=== PATIENT | female | born 1950 | race Caucasian/White ===

== ENCOUNTER → 2016-11-16 | Outpatient (CLI) | payer MEDICARE ==
--- NOTE | 2016-11-16 09:00 | BD ---
EXAMINATION TYPE: MG DEXA axial skeleton. DATE OF EXAM: 11/16/2016 COMPARISON: 2014 CLINICAL HISTORY: other spec disorder Height: 5'3 Weight: 187 FRAX RISK QUESTIONS: Alcohol (3 or more units per day): no Family History (Parent hip fracture): no Glucocorticoids (More than 3mos): no (Ex: prednisone, prednisolone, methylprednisolone, dexamethasone, and hydrocortisone). History of Fracture in Adulthood: no Secondary Osteoporosis: 1. Type 1 Diabetes: no 2. Hyperthyroidism: no 3. Menopause before 45: no 4. Malnutrition: no 5. Chronic liver disease: no Rheumatoid Arthritis: no Current Tobacco Use: no RISK FACTORS HISTORY OF: Family History of Osteoporosis: Postmenopausal woman: MEDICATIONS: Thyroid Medications: Which medication: Synthroid How Lon years Additional Medications: cholesterol Additional History: EXAM MEASUREMENTS: Bone mineral densitometry was performed using the [employer] System. Bone mineral density as measured about the Lumbar spine is: ----- L1-L4(G/cm2): 1.276 T Score Values are as follows: ----- L2: 0.5 ----- L3: 1.3 ----- L4: 2.0 ----- L1-L4: 0.8 Bone mineral density has: Increased 3.0% since study of: 10/17/2014 Bone mineral density about the R hip (g/cm2): 0.906 Bone mineral density about the L hip (g/cm2): 0.857 T Score values are as follows: -----R Neck: -0.9 -----L Neck: -1.3 -----R Total: -0.1 -----L Total: -0.4 Bone mineral density has: Increased 1.1% since study of: 10/17/2014 IMPRESSION: Osteopenia (T Score between -2.5 and -1 as noted by T score values: Left hip There is slightly increased risk of fracture and the patient may be considered for treatment. Re-Screen 2-5 years. NOTE: T-SCORE=SD OF THE YOUNG ADULT MEAN.
--- NOTE | 2016-11-18 07:53 | MM ---
Reason for exam: screening (asymptomatic). Last mammogram was performed 1 year ago. History: Patient is postmenopausal. Excisional biopsy of the left breast. 2 benign excisional biopsies of the right breast. Physical Findings: A clinical breast exam by your physician is recommended on an annual basis and results should be correlated with mammographic findings. MG 3D Screening Mammo W/Cad Bilateral CC and MLO view(s) were taken. Prior study comparison: November 11, 2015, bilateral MG 3d screening mammo w/cad. October 17, 2014, bilateral MG screening mammo w CAD. October 16, 2013, bilateral MG screening mammo w CAD. There are scattered fibroglandular densities. Finding: There is a 13 mm circumscribed round mass in the subareolar position of the left breast. There is a chronic nodularity bilaterally. New finding and increase in size since November 11, 2015, October 17, 2014, and October 16, 2013. ASSESSMENT: Incomplete: need additional imaging evaluation, BI-RAD 0 RECOMMENDATION: Ultrasound of the left breast. [facility] will attempt to contact patient to return for ultrasound.
== END | disposition home or self-care (01) ==
LOC: RADBDWWP 07:50
PROVIDERS: ATTEND Internal Medicine
DX: Z12.31 Encounter for screening mammogram for malignant neoplasm of breast (principal); M85.88 Other specified disorders of bone density and structure, other site
CPT/HCPCS: 77080; 77063; G0202

== ENCOUNTER → 2016-11-19 | Outpatient (CLI) | payer MEDICARE ==
--- NOTE | 2016-11-20 07:53 | USB ---
Reason for exam: additional evaluation requested from abnormal screening. History: Patient is postmenopausal. Excisional biopsy of the left breast. 2 benign excisional biopsies of the right breast. Physical Findings: Nurse Summary: Patient complains of left breast x 1 year, 1cm superficial retroareolar 3 o'clock sebaceous cyst (nurse mj). US Breast Workup Limited LT Left breast ultrasound demonstrates a 1.3 x 1.4 x 0.8cm oval, hypoechoic lesion at 3:30 subareolar position with thru transmission. The lesion involves the skin surface suggesting a sebaceous cyst. No other solid or cystic lesion seen. These results were verbally communicated with the patient and result sheet given to the patient on 11/19/16. ASSESSMENT: Benign, BI-RAD 2 RECOMMENDATION: Return to routine screening mammogram schedule for both breasts. Manage on a clinical basis with regard to probable sebaceous cyst.
== END | disposition home or self-care (01) ==
LOC: RADUSWWP 14:11
PROVIDERS: ATTEND Internal Medicine
DX: R92.8 Other abnormal and inconclusive findings on diagnostic imaging of breast (principal)

== ENCOUNTER → 2017-11-17 | Outpatient (CLI) | payer MEDICARE ==
--- NOTE | 2017-11-19 12:39 | MM ---
Reason for exam: screening (asymptomatic). Last mammogram was performed 1 year ago. History: Patient is postmenopausal. Excisional biopsy of the left breast. 2 benign excisional biopsies of the right breast. Physical Findings: A clinical breast exam by your physician is recommended on an annual basis and results should be correlated with mammographic findings. MG 3D Screening Mammo W/Cad Bilateral CC and MLO view(s) were taken. Prior study comparison: November 16, 2016, bilateral MG 3d screening mammo w/cad. November 11, 2015, bilateral MG 3d screening mammo w/cad. There are scattered fibroglandular densities. There is chronic nodularity in the left breast. Ring or palpable abnormality corresponds to chronic nodularity left breast enlarged from 2012. This finding is changed when compared with previous exams. ASSESSMENT: Incomplete: need additional imaging evaluation, BI-RAD 0 RECOMMENDATION: Ultrasound of the left breast. [facility] will attempt to contact patient to return for ultrasound.
== END | disposition home or self-care (01) ==
LOC: RADMAMWWP 09:42
PROVIDERS: ATTEND Internal Medicine
DX: Z12.31 Encounter for screening mammogram for malignant neoplasm of breast (principal)
CPT/HCPCS: 77063; 77067

== ENCOUNTER → 2017-11-26 | Outpatient (CLI) | payer MEDICARE ==
--- NOTE | 2017-11-29 08:53 | USB ---
Reason for exam: additional evaluation requested from abnormal screening. History: Patient is postmenopausal. Excisional biopsy of the left breast. 2 benign excisional biopsies of the right breast. Physical Findings: Nurse did not find any significant physical abnormalities on exam. US Breast Workup Limited LT Left limited breast ultrasound including focal area of concern, retroareolar and axilla demonstrates a 1.6 x 0.9 x 1.3cm hypoechoic lesion at the 3 o'clock posterior nipple. These results were verbally communicated with the patient and result sheet given to the patient on 11/26/17. ASSESSMENT: Suspicious, BI-RAD 4 RECOMMENDATION: Aspiration of the left breast. Patient wishes to talk to Dr. Hewitt at appointment scheduled for 11/29/17.
== END | disposition home or self-care (01) ==
LOC: RADUSWWP 14:06
PROVIDERS: ATTEND Internal Medicine
DX: R92.8 Other abnormal and inconclusive findings on diagnostic imaging of breast (principal)

== ENCOUNTER 2017-12-24 10:06 | Day surgery (SDC) | payer MEDICARE ==
[2017-12-22 11:34] VITALS: BMI 32.2
[~2017-12-24 10:06] MED LIST: LACTATED RINGERS 1,000 ML IV SCH
[2017-12-24 10:49] VITALS: RESP 16; TEMP 97.8
[2017-12-24] MEDS ORDERED: LIDOCAINE 1% 20 ML VIAL (10MG/ML) FOR IV START INTRADERMA ONE (10:54)
[2017-12-24] MEDS ORDERED: PROPOFOL 10 MG/ML 20 ML VIAL IV ONE (11:20)
--- NOTE | 2017-12-24 11:38 | P.GSHP ---
History of Present Illness H&P Date: 12/24/17 Chief Complaint: Colon cancer screening Patient here today for colonoscopy. Last colonoscopy 5 years ago. The patient had a small adenoma in the cecum at that time. Otherwise no bowel complaints. Past Medical History Past Medical History: Hyperlipidemia, Osteoarthritis (OA), Thyroid Disorder Additional Past Medical History / Comment(s): Hx MIGRAINES, none in 15 yrs, hypothyroid. History of Any Multi-Drug Resistant Organisms: None Reported Past Surgical History: Section, Cholecystectomy Additional Past Surgical History / Comment(s): "Stones removed from salivary gland" Past Anesthesia/Blood Transfusion Reactions: No Reported Reaction Past Psychological History: No Psychological Hx Reported Smoking Status: Former smoker Past Alcohol Use History: Occasional Additional Past Alcohol Use History / Comment(s): Quit smoking 13 yrs ago, smoked for 35yrs. Past Drug Use History: None Reported - Past Family History Father Family Medical History: Cancer Medications and Allergies Home Medications Medication Instructions Recorded Confirmed Type Levothyroxine Sodium [Synthroid] 75 mcg PO QAM 08/15/13 12/24/17 History Pravastatin Sodium [Pravachol] 40 mg PO HS 08/15/13 12/24/17 History Aspirin 81 mg PO DAILY 09/17/14 12/22/17 History Calcium Carbonate/Vitamin D3 1 tab PO DAILY 12/22/17 12/24/17 History [Calcium 600-Vit D3 500 Softgel] Cholecalciferol [Vitamin D3] 5,000 unit PO DAILY 12/22/17 12/24/17 History Joint Health 1 tab PO DAILY 12/22/17 12/24/17 History Allergies Allergy/AdvReac Type Severity Reaction Status Date / Time No Known Allergies Allergy Verified 12/22/17 11:22 Surgical - Exam Vital Signs Temp Pulse Resp BP Pulse Ox 97.8 F 65 16 160/83 96 12/24/17 10:46 12/24/17 10:46 12/24/17 10:46 12/24/17 10:46 12/24/17 10:46 My physical exam Assessment and Plan (1) Colon cancer screening Narrative/Plan: Will proceed with colonoscopy Current Visit: Yes Status: Acute Code(s): Z12.11 - ENCOUNTER FOR SCREENING FOR MALIGNANT NEOPLASM OF COLON SNOMED Code(s): 164389237
[2017-12-24 12:11] VITALS: BP 127/67; PULSE 71
--- NOTE | 2017-12-24 12:54 | P.PCN ---
Date of Procedure: 12/24/17 Procedure(s) Performed: PREOPERATIVE DIAGNOSIS: Colon cancer screening, history of polyps POSTOPERATIVE DIAGNOSIS: Diverticulosis PROCEDURE: Colonoscopy ANESTHESIA: MAC SURGEON: Anam Hewitt M.D. SPECIMENS: None ENDOSCOPIC PROCEDURE: The patient was placed on the endoscopy table in the left decubitus position. The Olympus colonoscope was inserted into the anus and passed under direct visualization to the proximal ascending colon. It appeared that we were just adjacent to the ileocecal valve. I could not however loop around into the base of the cecum. This was despite multiple attempts at changing the patient's body position and abdominal wall pressures. The scope was slowly withdrawn. There were no neoplastic inflammatory or polypoid lesions throughout the visualized cecum, ascending, transverse, descending, sigmoid and rectum. There was moderate left-sided diverticulosis noted. Digital rectal examination was normal. The patient was taken to the recovery room in stable condition per anesthesia guidelines. RECOMMENDATIONS: Exam findings discussed with the patient and her in detail. We could not visualize the base of the cecum where she had a previous polyp. We did discuss the options of barium enema however given the relatively low likelihood that an abnormality would be identified we decided to continue observation. We'll plan follow-up colonoscopy 5 years.
== END 2017-12-24 12:30 | disposition home or self-care (01) ==
LOC: ORWHC2ENDO 10:06
PROVIDERS: ATTEND Surgery
DX: Z12.11 Encounter for screening for malignant neoplasm of colon (principal); K57.30 Diverticulosis of large intestine without perforation or abscess without bleeding; Z86.010 Personal history of colon polyps; E78.5 Hyperlipidemia, unspecified; M19.90 Unspecified osteoarthritis, unspecified site; E03.9 Hypothyroidism, unspecified; Z87.891 Personal history of nicotine dependence; Z79.82 Long term (current) use of aspirin; Z79.890 Hormone replacement therapy; Z79.899 Other long term (current) drug therapy
CPT/HCPCS: J2704; G0105

== ENCOUNTER → 2018-11-24 | Outpatient (CLI) | payer MEDICARE ==
--- NOTE | 2018-11-25 08:31 | MM ---
Reason for exam: additional evaluation requested from prior study. Last mammogram was performed 1 year ago. History: Patient is postmenopausal. Excisional biopsy of the left breast. 2 benign excisional biopsies of the right breast. Physical Findings: Nurse did not find any significant physical abnormalities on exam. MG 3D Diag Mammo W/Cad SHO Bilateral CC and MLO view(s) were taken. Prior study comparison: November 17, 2017, bilateral MG 3d screening mammo w/cad. November 16, 2016, bilateral MG 3d screening mammo w/cad. There are scattered fibroglandular densities. There is chronic nodularity in the right breast. Chronic grouped calcifications 10 o'clock left breast. Stable bilobed appearance to the left nipple. These results were verbally communicated with the patient and result sheet given to the patient on 11/24/18. ASSESSMENT: Benign, BI-RAD 2 RECOMMENDATION: Routine screening mammogram of both breasts in 1 year.
--- NOTE | 2018-11-25 13:53 | BD ---
EXAMINATION TYPE: Axial Bone Density DATE OF EXAM: 11/24/2018 COMPARISON: 11.16.2016 CLINICAL HISTORY: M 89.9 Height: 63 Weight: 192.5 FRAX RISK QUESTIONS: Alcohol (3 or more units per day): no Family History (Parent hip fracture): no Glucocorticoids (More than 3mos): no (Ex: prednisone, prednisolone, methylprednisolone, dexamethasone, and hydrocortisone). History of Fracture in Adulthood: no Secondary Osteoporosis: no 1. Type 1 Diabetes: no 2. Hyperthyroidism: no 3. Menopause before 45: no 4. Malnutrition: no 5. Chronic liver disease: no Rheumatoid Arthritis: no Current Tobacco Use: no RISK FACTORS HISTORY OF: family hx osteoporosis menopause age 50 MEDICATIONS: cholesterol Thyroid Medications: synthroid Additional History: EXAM MEASUREMENTS: Bone mineral densitometry was performed using the [employer] System. Bone mineral density as measured about the Lumbar spine is: ----- L1-L4(G/cm2): 1.309 T Score Values are as follows: ----- L2: 0.7 ----- L3: 1.9 ----- L4: 2.0 ----- L1-L4: 1.1 Bone mineral density has: increased 2.5 % since study of: 11.16.2016 Bone mineral density about the R hip (g/cm2): 0.923 Bone mineral density about the L hip (g/cm2): 0.952 T Score values are as follows: -----R Neck: -0.8 -----L Neck: -0.6 -----R Total: -0.1 -----L Total: -0.4 Bone mineral density has: decreased -0.2 % since study of: 11.16.2016 IMPRESSION: Osteopenia (T Score between -2.5 and -1). There is slightly increased risk of fracture and the patient may be considered for treatment. Re-Screen 2-5 years. NOTE: T-SCORE=SD OF THE YOUNG ADULT MEAN.
== END | disposition home or self-care (01) ==
LOC: RADMAMWWP 15:03
PROVIDERS: ATTEND Family Medicine
DX: R92.8 Other abnormal and inconclusive findings on diagnostic imaging of breast (principal); M85.80 Other specified disorders of bone density and structure, unspecified site
CPT/HCPCS: 77080; 77066; G0279; 77062

== ENCOUNTER → 2019-12-11 | Outpatient (CLI) | payer MEDICARE | END | disposition home or self-care (01) | LOC: LABPAT 12:31 | PROVIDERS: ATTEND Orthopaedic Surgery | DX: Z01.812 Encounter for preprocedural laboratory examination (principal) | CPT/HCPCS: 87070 ==

== ENCOUNTER 2020-01-02 07:41 | Day surgery (SDC) | payer MEDICARE ==
[2019-12-29 15:23] VITALS: BMI 34.7
--- NOTE | 2020-01-01 11:00 | HP ---
HISTORY AND PHYSICAL CHIEF COMPLAINT: Left knee pain. HISTORY OF PRESENT ILLNESS: Patient is a 69-year-old female who presents with progressive left knee pain for the past several years. It has worsened over the past 2-3 months. She notes anterior and medial pain with weightbearing activities and walking along with stairs. She had a previous arthroscopy 25 years ago. She notes she has been limping. She has had a hard time getting around. She has tried conservative treatment over the past 2 years to include weight loss and home exercise program in addition to anti-inflammatories. PAST MEDICAL HISTORY: Significant for arthritis, hypercholesterolemia, and hypothyroidism. PAST SURGICAL HISTORY: Significant for previous left knee arthroscopy in addition to cholecystectomy and section. CURRENT MEDICATIONS: Aspirin, pravastatin and her thyroid medication. She denies drug allergies. FAMILY HISTORY: Significant for cancer. SOCIAL HISTORY: Negative for current tobacco or alcohol use. 16 POINT REVIEW OF SYSTEMS: Otherwise reviewed and is noncontributory. PHYSICAL EXAMINATION: On examination, the patient is approximately 5 foot 3, 190 pounds of endomorphic habitus. HEENT: Exam is nonfocal. NECK: Supple. She has painless passive motion of her left hip. Straight leg raise is negative. Active motion left knee -18 to 50 degrees of flexion. She has a moderate effusion. She is tender about the medial joint line. Collaterals are stable, Karen is negative, Yandel's is equivocal. Her distal neurovascular appears intact in the left lower extremity. Weightbearing notch, lateral Merchant views of the left knee obtained in the office show severe medial and patellofemoral compartment narrowing with [id number] changes and subchondral sclerosis and spur formation. IMPRESSION: Left knee severe medial and patellofemoral compartment osteoarthrosis. RECOMMENDATIONS: I talked to the patient at length regarding her condition and treatment options. At this point, she is quite limited because of pain related to her osteoarthrosis despite previous conservative measures. After thorough discussion, she opts to proceed with surgery. We will plan to proceed with left total knee arthroplasty. Risks and benefits were discussed at length in layman's terms. We will institute DVT prophylaxis postoperatively. The patient underwent preoperative medical evaluation by Jess Avery, Nurse practitioner. MMODL / JAQUELINEN: [id number] /
[~2020-01-02 07:41] MED LIST changes: +HYDROmorphone 0.5 MG/0.5 ML SYRINGE IVP PRN; -LACTATED RINGERS 1,000 ML IV SCH; +LIDOCAINE 1% (10MG/ML) FOR IV START INTRADERMA PRN; +MIDAZOLAM 2 MG/2 ML VIAL IV PRN; +ROPIVACAINE 246.25 MG, EPINEPHrine 0.5 MG, KETOROLAC 30 MG, cloNIDine HCL/PF 80 MCG, WA... MISCELLANE ONE; +TRANEXAMIC ACID 1,000 MG in SODIUM CHLORIDE 0.9% 100 ML IVPB ONE
[2020-01-02] MEDS: LACTATED RINGERS 1,000 ML IV SCH (08:15)
[2020-01-02] MEDS ORDERED: LIDOCAINE 1% (10MG/ML) FOR IV START INTRADERMA ONE (08:15)
[2020-01-02] MEDS: ACETAMINOPHEN TAB 500 MG TAB PO ONE ×2 (08:30→13:45)
[2020-01-02] MEDS: MELOXICAM 7.5 MG TAB PO ONE ×2 (08:30→13:45)
[2020-01-02] MEDS: ONDANSETRON 4 MG/2 ML VIAL IVP ONE ×2 (08:40→13:48)
[2020-01-02] MEDS: DEXAMETHASONE SOD PHOSPHATE 4 MG/ML 1 ML VIAL IV ONE ×2 (08:40→13:45)
[2020-01-02] MEDS ORDERED: fentaNYL (PF) 50 MCG/ML 2 ML AMP IVP ONE (08:45)
[2020-01-02] MEDS ORDERED: ROPIVACAINE 0.2%-NS ON-Q PUMP 1,090 MG, EMPTY PAIN BALL 1 EACH MISCELLANE PRN (09:02)
--- NOTE | 2020-01-02 09:03 | P.ANPRN ---
Procedure Note - Anesthesia - Nerve Block Performed Left Adductor Canal Infusion Time Out Performed: Yes (842) Date of Procedure: 01/02/20 Procedure Start Time: 08:43 Procedure Stop Time: 08:53 Location of Patient: PreOp Indication: Acute Post-Operative Pain, Analgesia, Requested by Surgeon Specifically requested for management of pain by : Nathan Enriquez Sedation Type: Sedate with meaningful contact maintained Preparation: Sterile Prep, Sterile Dressing Position: Supine Catheter: Indwelling Needle Types: Pajunk Needle Gauge: 18 Ultrasound used to visualize needle placement: Yes Ultrasound used to observe medication spread: Yes Injectate: 0.5% Ropivacaine (see comment for volume) (20 mL) Blood Aspirated: No Pain Paresthesia on Injection Noted: No Resistance on Injection: Normal Image Stored and Saved: Yes Events: Uneventful and Well Tolerated
[2020-01-02] MEDS ORDERED: fentaNYL (PF) 50 MCG/ML 2 ML AMP ONE (09:24)
[2020-01-02] MEDS ORDERED: SODIUM CHLORIDE 0.9% 100 ML BAG ONE (09:24)
[2020-01-02] MEDS ORDERED: PROPOFOL 10 MG/ML 20 ML VIAL IV ONE (09:24)
[2020-01-02] MEDS ORDERED: TRANEXAMIC ACID 1,000 MG/10 ML VIAL ONE (09:24)
[2020-01-02] MEDS ORDERED: MIDAZOLAM 2 MG/2 ML VIAL ONE (09:24)
[2020-01-02 09:25] LABS: INR 0.9 (<1.2); Prothrombin Time 9.6 sec (9.0-12.0)
[2020-01-02] MEDS ORDERED: ceFAZolin 3,000 MG in SODIUM CHLORIDE 0.9% IRRIGATIO 3,000 ML IRRIGATION ONE (10:02)
[2020-01-02] MEDS ORDERED: traMADol 50 MG TAB PO PRN (11:07)
[2020-01-02] MEDS ORDERED: ACETAMINOPHEN TAB 325 MG TAB PO PRN (11:07)
[2020-01-02] MEDS ORDERED: HYDROmorphone 0.5 MG/0.5 ML SYRINGE IVP PRN (11:07)
[2020-01-02] MEDS ORDERED: ONDANSETRON 4 MG/2 ML VIAL IVP PRN (11:07)
[2020-01-02] MEDS ORDERED: HYDROcodone/APAP 5-325MG 1 EACH TAB PO PRN (11:07)
[2020-01-02] MEDS ORDERED: MAGNESIUM HYDROXIDE 2,400 MG/10 ML CUP PO PRN (11:07)
[2020-01-02] MEDS ORDERED: NALOXONE 0.4 MG/ML 1 ML VIAL IV PRN (11:07)
[2020-01-02] MEDS ORDERED: LACTATED RINGERS 1,000 ML IV ONE (11:10)
--- NOTE | 2020-01-02 11:39 | P.OP ---
Date of Procedure: 01/02/20 Preoperative Diagnosis: Left knee severe tricompartmental osteoarthrosis Postoperative Diagnosis: Same Procedure(s) Performed: Left total knee arthroplastycruciate retainingcemented Implants: Depuy Attune 6 cemented femoral component, size 5 cemented tibial component, 10 mm articular surface, 32 mm cemented patellar component. Anesthesia: regional, local, spinal Surgeon: Nathan Enriquez Hammer Adjuster #1: Benedicto Cummins Estimated Blood Loss (ml): 50 Pathology: other (Bone fragments) Condition: stable Disposition: PACU Indications for Procedure: The patient's a 69-year-old female who presents with progressive left knee pain secondary to osteoarthrosis despite conservative measures. A discussion of the risks and benefits of operative intervention versus continued conservative measures was made with patient. She opted to proceed with surgery. Operative risks to include infection, neurovascular injury, possible development of blood clots, possible fracture, possible component loosening, possible component failure and need for subsequent procedures was discussed. Informed consent was obtained. Operative Findings: Same Description of Procedure: The patient was brought to the operating room, and after induction of spinal anesthesia the left lower extremity was prepped and draped in a normal fashion. The tourniquet was inflated to 270 mmHg. A longitudinal incision extending 3 finger breaths above the superior pole of the patella extending to the medial aspect the tibial tubercle was then made. The skin and subcutaneous tissues were divided sharply. Electrocautery was used for hemostasis. A medial parapatellar arthrotomy was then performed. The medial soft tissues to include the superficial and deep portions of the medial collateral ligament as well as the medial hamstring tendons were elevated subperiosteally. The proximal medial tibia osteophytes were carefully removed. The patella was everted. The knee was flexed. A portion of the retropatellar fat pad was excised sharply. The anterior cruciate ligament was sacrificed. A starting hole was made in the distal femur 1 cm anterior to the posterior cruciate origin. An intramedullary femoral guide was gently inserted planning on 5 valgus distal cut with 9 mm distal resection. The cutting block was pinned in place. The distal cut was then made. The posterior referencing sizing guide was utilized. 3 of external rotation was built into the system and verified off the trans- epicondylar axis and the posterior condyles. I felt size 6 narrow was most appropriate. The cutting block was pinned in place. The anterior, posterior, and chamfer cuts were then made. The bone fragments were removed. A sulcus cut was then made with the appropriate guide. The trial size 6 narrow femoral component was then placed and was fully seated. There was good anterior to posterior and medial to lateral fit. The distal peg holes were then drilled. The trial component was then removed. Attention was then paid towards preparing the proximal tibia. An extra medullary guide was utilized in line with the tibial shaft and second metatarsal distally. A 7 posterior slope was planned. I planned on 2 mm resection from the medial compartment. The cutting block was pinned in place. The proximal tibial cut was then made. The bone was removed in one fragment. The remnants of the medial and lateral menisci were excised the capsule junction with electrocautery. The tibia sized most appropriately at size 5. The posterior osteophytes off the distal femur were carefully removed with a curved osteotome. The trial tibial and femoral components were placed along with a 10 millimeters articular surface. I was able to obtain full flexion and extension with good stability with varus and valgus stress. After several flexion and extension cycles, the tibial rotation was marked with electrocautery in line with the medial one third of the tibial tubercle. Attention was then paid towards preparing the patella. A patella reamer was utilized taking this down to 14 mm of bone stock. A good flush cut was made. The patella sized most appropriately at 32 millimeters. The peg holes were then drilled. The trial component was placed. The knee was taken through a range of motion. I had good patellofemoral tracking with no hands technique. The trial components were then removed. The tibia was prepared in the appropriate rotation with appropriate drill and keel punch. The flexion and extension gaps were checked and felt to be symmetric. The posterior soft tissues were injected with ropivacaine. The bony surfaces were prepared with pulsatile lavage and dried. The deep tibial component was then cemented in place and was fully seated. Excess cement was removed. The femoral component was cemented in place and was fully seated. Again excess cement was removed. The trial 10 millimeters surface was then inserted in the knee was put in full extension. T he patella component was cemented in place. After the cement had sufficiently hardened, the knee was again taken through a range of motion. Again there was good stability in flexion and extension with varus and valgus stress. The trial articular surface was then removed. The final articular surface was placed and was impacted. Care was taken to avoid any soft tissue interposition. Pulsatile lavage was again utilized. The tourniquet was deflated with approximately 60 minutes total tourniquet time. There was minimal drainage therefore a deep drain was not placed. The medial parapatellar arthrotomy was then closed with #2 Ethibond suture. The subcutaneous tissues were reapproximated interrupted 2- 0 Vicryl sutures. The skin was reapproximated with 3-0 subarticular strata fix suture. Skin tape and adhesive was applied. A sterile dressing was applied. The patient was then awoken from sedation and transferred to recovery room in good condition. Blood loss was estimated at 50 milliliters. No complications were incurred. Sponge and needle counts were correct at the end the case. Te MOMIN assisted during the major components this case to include exposure, bone resection, and implantation.
--- NOTE | 2020-01-02 12:45 | XR ---
EXAMINATION TYPE: XR knee limited LT DATE OF EXAM: 01/02/2020 COMPARISON: NONE HISTORY: 69-year-old female evaluation for postoperative abnormality in alignment TECHNIQUE: 2 views FINDINGS: Images show placement of left total knee arthroplasty. Both distal femoral and proximal tibial compon ents of the prosthesis are well seated without periprosthetic fracture. Alignment grossly anatomic. A nterior soft tissue swelling with soft tissue air as well as intra-articular air compatible with rece nt operation. IMPRESSION: Uncomplicated postoperative appearance left total knee arthroplasty.
[2020-01-02] MEDS ORDERED: PRAVASTATIN SODIUM 40 MG TAB PO SCH (21:00)
[2020-01-02] MEDS ORDERED: SENNOSIDES-DOCUSATE SODIUM 1 EACH TAB PO SCH (21:00)
[2020-01-03] MEDS: PANTOPRAZOLE 40 MG TABLET PO SCH ×2 (03:51→08:31)
[2020-01-03] MEDS: CALCIUM CARBONATE 500 MG CHEWABLE PO PRN ×2 (05:14→08:20)
[2020-01-03] MEDS: LACTATED RINGERS 1,000 ML IV SCH (05:40)
--- NOTE | 2020-01-03 06:19 | P.PN ---
Progress Note - Text Progress Note Date: 01/03/20 Patient was seen at bedside at 6 AM. Patient is postop day 1 from right total knee replacement with adductor canal catheter placed for pain . Ropivacaine 0.2% infusion running at 8 ml per hour. VAS score is 1. Patient denies side effects. Lower extremity sensation and motor function is intact. Patient has ambulated. Dressing clean dry and intact over catheter site
[2020-01-03] MEDS: HYDROcodone/APAP 5-325MG 1 EACH TAB PO PRN ×2 (06:22→13:58)
[2020-01-03] MEDS ORDERED: LEVOTHYROXINE 75 MCG TAB PO SCH (06:30)
[2020-01-03 06:48] LABS: Basophils % (A) 0 %; Eosinophils % (A) 0 %; HCT 36.1 % (34.0-46.0); HGB 12.1 gm/dL (11.4-16.0); Lymphocytes # (A) 1.2 k/uL (1.0-4.8); Lymphocytes % (A) 10 %; MCH 30.2 pg (25.0-35.0); MCHC 33.5 g/dL (31.0-37.0); MCV 90.2 fL (80.0-100.0); Mean Platelet Volume 7.5; Monocytes # (A) 0.9 k/uL (0-1.0); Monocytes % (A) 7 %; Neutrophils # (A) 10.6 k/uL (1.3-7.7); Neutrophils % (A) 82 %; Platelet Count 236 k/uL (150-450); RDW 12.9 % (11.5-15.5)
[2020-01-03 07:41] VITALS: BP 136/80; PULSE 74; TEMP 98.5
[2020-01-03 08:58] VITALS: RESP 18
[2020-01-03] MEDS ORDERED: RIVAROXABAN 10 MG TAB PO SCH (09:00)
[2020-01-03] MEDS ORDERED: ASPIRIN 81 MG PO SCH (09:00)
[2020-01-03] MEDS ORDERED: CALCIUM CARB-VIT D 500MG-200UN 1 EACH TAB PO SCH (09:00)
[2020-01-03] MEDS ORDERED: CHOLECALCIFEROL 1,000 UNIT TAB PO SCH (09:00)
--- NOTE | 2020-01-03 10:22 | P.PN ---
Subjective Progress Note Date: 01/03/20 Principal diagnosis: Status post left total knee arthroplasty Patient is examined today at bedside, she is resting comfortably. She's ambulated well with therapy. Her pain is controlled at this time. She is complaining of some on and off heartburn. She denies any headaches, lightheadedness, chest pain, shortness of breath, fever or chills. Objective - Vital Signs Vital signs: Vital Signs Temp 98.5 F 01/03/20 07:39 Pulse 74 01/03/20 07:39 Resp 18 01/03/20 08:00 BP 136/80 01/03/20 07:39 Pulse Ox 96 01/03/20 07:39 Intake & Output 01/02/20 01/03/20 01/03/20 18:59 06:59 18:59 Intake Total 1401 780 Output Total 50 Balance 1351 780 Weight 87.3 kg Intake: IV 1351 Intake, IV Titration 50 200 Amount Lactated Ringers 1,000 ml 50 200 @ 50 mls/hr IV .Q20H ALEKSANDRA Rx#:[id number] Oral 580 Output: Estimated Blood Loss 50 Other: Voiding Method Toilet Toilet # Voids 1 - Exam Left lower extremity: Incision is clean, dry, and intact. The exofin fusion tape is in good condition. There is minimal soft tissue swelling and ecchymosis surrounding the medial and lateral aspects of the incision. Calf is soft, no tenderness with palpation. Plantar flexion, dorsiflexion, EHL, FHL are intact. Sensory exam to light touch throughout the extremity is intact, dorsal pedis pulses 2+. - Labs CBC & Chem 7: 01/03/20 06:23 Labs: Abnormal Lab Results - Last 24 Hours (Table) 01/03/20 Range/Units 06:23 WBC 13.0 H (3.8-10.6) k/uL Neutrophils # 10.6 H (1.3-7.7) k/uL Assessment and Plan Assessment: Postoperative day #1 status post left total knee arthroplasty Plan: Pain control, plan for discharge home on oral medication GI and DVT prophylaxis, aspirin 81 mg twice a day, we'll also send home on Pepcid 20 mg Wound care instructions were discussed Icing and elevating techniques discussed Home health care after discharge Medical recommendations Discharge planning: Plan for discharge home today Time with Patient: Less than 30
--- NOTE | 2020-01-03 10:25 | P.DS ---
Providers Date of admission: 01/02/2020 Expected date of discharge: 01/03/20 Attending physician: Nathan Enriquez Consults: 01/02/20 11:07 Consult Physician Routine Consulting Provider: Shabnam Smith Reason/Comments: medical management Do you want consulting provider notified?: Yes Primary care physician: Shabnam Smith Hospital Course: Date of admission: 01/02/2020 Date of discharge: 01/03/2020 Admission diagnosis: Status post left total knee arthroplasty Discharge diagnosis: Same Attending physician: Dr. Enriquez Surgical procedures: Left total knee arthroplasty Brief history: Patient is a 69-year-old female with a history of with progressive primary left knee osteoarthritis. At this point patient has failed conservative treatment measures and has opted to proceed with a elective left total knee arthroplasty. Hospital course: Details of patient's surgery can be found in operative report. Patient tolerated the procedure well and was subsequently transported to orthopedic floor. Patient's orthopeidc and medical care was provided daily. Patient had daily laboratory tests performed for evaluation of overall blood counts. Patient had daily physical therapy to include strengthening range of motion as well as education with walker ambulation. Patient was treated with Xarelto for their postoperative DVT prophylaxis during their inpatient stay. Patient was noted to have a relatively uneventful postoperative course. Patient reported satisfactory pain control with oral pain medications by postoperative day 0. Patient showed satisfactory progress with physical therapy. Patient moved steadily through the program and had no difficulty meeting the goals by postoperative day 1. Given patient's otherwise satisfactory course and having met physical therapy goals, plan is to discharge patient home on postoperative day 1. Discharge condition/disposition: Patient will be discharged home in stable condition. Discharge medications: Instructions are given on resumption of patient's normal daily medications per primary care recommendation, in addition patient will be prescribed Temple 5 mg/325 mg, Pepcid 20 mg, Colace 100 mg,. Discharge instructions: 1. Wound care and infection precautions, keep incision dry and covered while showering, no lotions, creams, moisturizers. No soaking, tubs, pools, hottubs. Do not scrub over the incision. 2. Weight-bear as tolerated with walker / cane until follow-up. 3. Ice and elevate when necessary. Do not exceed 20 minutes per hour with ice pack. 4. Utilize compression sleeve until seen at first follow up appointment. 5. Visiting nursing care. 6. Home physical therapy including home CPM. 7. Pain meds and anticoagulants per prescription. 8. Pain medication has potential to cause constipation. Increase oral fluid and fiber intake. Contact primary care provider if you have not had a bowel movement within 48 hours after discharge 9. No anti-inflammatory medication until discussed at first post operative visit, this including Motrin, Aleve, Mobic, Diclofenac. 10. Follow up in office at 2 weeks postop with Te Cummins PA-C 11. Follow up with your primary care doctor 7-10 days after discharge. 12. Contact [facility] with any questions, . Procedures: Left total knee arthroplasty Patient Condition at Discharge: Good Plan - Discharge Summary Discharge Rx Participant: Yes New Discharge Prescriptions: New Aspirin [Adult Low Dose Aspirin EC] 81 mg PO BID #60 tablet. Docusate [Colace] 100 mg PO DAILY #30 capsule Hydrocodone/Acetaminophen [Temple 5-325] 1 - 2 each PO Q6HR PRN #56 tab PRN Reason: Pain Famotidine [Pepcid] 20 mg PO DAILY #30 tablet Discontinued Aspirin 81 mg PO DAILY No Action Pravastatin Sodium [Pravachol] 40 mg PO HS Levothyroxine Sodium [Synthroid] 75 mcg PO QAM Cholecalciferol [Vitamin D3] 5,000 unit PO DAILY Calcium Carbonate/Vitamin D3 [Calcium 600-Vit D3 500 Softgel] 1 tab PO DAILY Acetaminophen [Tylenol] 325 - 650 mg PO Q4H PRN PRN Reason: Pain Discharge Medication List Levothyroxine Sodium [Synthroid] 75 mcg PO QAM 08/15/13 [History] Pravastatin Sodium [Pravachol] 40 mg PO HS 08/15/13 [History] Calcium Carbonate/Vitamin D3 [Calcium 600-Vit D3 500 Softgel] 1 tab PO DAILY 12/22/17 [History] Cholecalciferol [Vitamin D3] 5,000 unit PO DAILY 12/22/17 [History] Acetaminophen [Tylenol] 325 - 650 mg PO Q4H PRN 12/29/19 [History] Aspirin [Adult Low Dose Aspirin EC] 81 mg PO BID #60 tablet. 01/03/20 [Rx] Docusate [Colace] 100 mg PO DAILY #30 capsule 01/03/20 [Rx] Famotidine [Pepcid] 20 mg PO DAILY #30 tablet 01/03/20 [Rx] Hydrocodone/Acetaminophen [Temple 5-325] 1 - 2 each PO Q6HR PRN #56 tab 01/03/20 [Rx] Follow up Appointment(s)/Referral(s): [facility] [NON-STAFF] - As Needed (Continuous Passive Motion knee machine) [facility], [NON-STAFF] - As Needed Benedicto Cummins PAC [PH[employer]] - 2 Weeks Activity/Diet/Wound Care/Special Instructions: Orthopedic Discharge Instructions: 1. Wound care and infection precautions, keep incision dry and covered while showering, no lotions, creams, moisturizers. No soaking, pools, hot tubs. Do not scrub over incision. 2. Weight-bear as tolerated with walker / cane until follow-up. 3. Ice and elevate when necessary. Do not exceed 20 minutes per hour with ice pack. 4. Utilize compression sleeve until seen at first follow up appointment. 5. Pain meds and anticoagulants per prescription. 6. Pain medication has potential to cause constipation. Increase oral fluid and fiber intake. Contact primary care provider if you have not had a bowel movement within 48 hours after discharge. 7. No anti-inflammatory medication until discussed at first post operative visit, this including Motrin, Aleve, Mobic, Diclofenac. 8. Follow up in office at 2 weeks postop with Te Cummins PA-C 9. Follow up with your primary care doctor 7-10 days after discharge. 10. Contact [facility] with any questions, . Discharge Disposition: HOME WITH HOME HEALTH SERVICES
--- NOTE | 2020-01-03 11:39 | P.CONS ---
History of Present Illness - Reason for Consult Consult date: 01/03/20 Medical management Requesting physician: Nathan Enriquez - History of Present Illness This is a 69-year-old female of Dr. Lacey. Patient presented for an elective total left knee arthroplasty with Dr. De Souza on 01/02/2020. Patient has past medical history of hyperlipidemia, osteoporosis, thyroid disorder and ex-smoker. Patient did complain of some indigestion throughout the night but was started on Tums and Pepcid with some relief. Patient reports she has been up ambulating. Patient denies any chest pain or shortness of breath. Patient denies nausea vomiting or diarrhea. Patient denies any urinary burning or frequency. White blood cell slightly elevated at 13 but patient did receive dexamethasone during surgical procedure. Patient denies any acute complaints and has remained afebrile. Patient explained to be discharged home with . Review of Systems Please refer to HPI otherwise unremarkable Past Medical History Past Medical History: Hyperlipidemia, Osteoarthritis (OA), Thyroid Disorder Additional Past Medical History / Comment(s): HX MIGRAINES History of Any Multi-Drug Resistant Organisms: None Reported Past Surgical History: Section, Cholecystectomy Additional Past Surgical History / Comment(s): left salivary gland removed, "Stones removed from salivary gland" Past Anesthesia/Blood Transfusion Reactions: No Reported Reaction Past Psychological History: No Psychological Hx Reported Smoking Status: Former smoker Past Alcohol Use History: Rare Additional Past Alcohol Use History / Comment(s): Quit smoking 2004, 1PPD, smoked for 35yrs. Past Drug Use History: None Reported - Past Family History Father Family Medical History: Cancer Medications and Allergies Home Medications Medication Instructions Recorded Confirmed Type Levothyroxine Sodium [Synthroid] 75 mcg PO QAM 08/15/13 01/02/20 History Pravastatin Sodium [Pravachol] 40 mg PO HS 08/15/13 01/02/20 History Calcium Carbonate/Vitamin D3 1 tab PO DAILY 12/22/17 01/02/20 History [Calcium 600-Vit D3 500 Softgel] Cholecalciferol [Vitamin D3] 5,000 unit PO DAILY 12/22/17 01/02/20 History Acetaminophen [Tylenol] 325 - 650 mg PO Q4H PRN 12/29/19 01/02/20 History Aspirin [Adult Low Dose Aspirin EC] 81 mg PO BID #60 tablet. 01/03/20 Rx Docusate [Colace] 100 mg PO DAILY #30 capsule 01/03/20 Rx Famotidine [Pepcid] 20 mg PO DAILY #30 tablet 01/03/20 Rx Hydrocodone/Acetaminophen [[place] 1 - 2 each PO Q6HR PRN #56 tab 01/03/20 Rx 5-325] Allergies Allergy/AdvReac Type Severity Reaction Status Date / Time No Known Allergies Allergy Verified 01/02/20 08:00 Physical Exam Vitals: Vital Signs Temp Pulse Pulse Pulse Resp BP Pulse Ox 01/03/20 08:00 18 01/03/20 07:39 98.5 F 74 17 136/80 96 01/03/20 04:24 97.6 F 84 18 135/79 98 01/02/20 20:42 97.7 F 92 18 134/85 95 01/02/20 14:15 102 H 18 144/71 96 01/02/20 14:07 98 F 95 18 140/86 100 01/02/20 13:50 97.6 F 86 18 169/76 98 01/02/20 13:02 75 16 170/84 97 01/02/20 12:32 85 16 151/60 97 01/02/20 12:17 78 16 146/67 98 01/02/20 12:15 85 16 146/65 99 01/02/20 12:01 89 16 146/65 100 01/02/20 11:45 89 16 93/51 94 L 01/02/20 11:34 98.0 F 83 16 110/53 98 Intake and Output 01/02/20 01/03/20 01/03/20 22:59 06:59 14:59 Intake Total 580 200 Balance 580 200 Intake: Intake, IV Titration 200 Amount Lactated Ringers 1,000 ml 200 @ 50 mls/hr IV .Q20H COUNTS INCLUDE 234 BEDS AT THE [facility] Rx#:[id number] Oral 580 Other: Voiding Method Toilet Toilet # Voids 1 1 Head normocephalic Neck supple Lungs clear to auscultation bilaterally no wheezing or crackles Heart regular rate and rhythm S1-S2, no rub or gallop Abdomen is soft nontender nondistended positive bowel sounds no hepatosplenomegaly Extremities no edema. Left leg dressing clean dry and intact Neuro alert and orientated to 3 Results CBC & Chem 7: 01/03/20 06:23 Labs: Abnormal Lab Results - Last 24 Hours (Table) 01/03/20 Range/Units 06:23 WBC 13.0 H (3.8-10.6) k/uL Neutrophils # 10.6 H (1.3-7.7) k/uL Assessment and Plan Assessment: 1. Status post total left knee arthroplasty. Postop day 1. Patient will be discharged home on aspirin 81 mg twice a day per surgical services 2. History of hypothyroidism. Maintained on Synthroid 3. Hyperlipidemia. Maintained on statin 4. Ex-smoker quitting in 2004 Thank you for this consultation we'll continue to follow patient closely throughout stay Time with Patient: Greater than 30 (Greater than 60% of the total time spent in counseling and coordination of care)
== END 2020-01-03 14:47 | disposition home health service (06) ==
LOC: OR 07:41 → 5NMEDONC 13:02 → OR 01-03 14:47
PROVIDERS: ATTEND Orthopaedic Surgery
DX: M17.12 Unilateral primary osteoarthritis, left knee (principal); E78.00 Pure hypercholesterolemia, unspecified; E03.9 Hypothyroidism, unspecified; R12 Heartburn; Z90.49 Acquired absence of other specified parts of digestive tract; G43.909 Migraine, unspecified, not intractable, without status migrainosus; E78.5 Hyperlipidemia, unspecified; M81.0 Age-related osteoporosis without current pathological fracture; Z87.891 Personal history of nicotine dependence; Z98.890 Other specified postprocedural states; Z79.891 Long term (current) use of opiate analgesic; Z79.890 Hormone replacement therapy; Z79.82 Long term (current) use of aspirin; Z79.899 Other long term (current) drug therapy
CPT/HCPCS: 97110; 97161; 85025; 85610; 88300; 73560; 27447; J2250; J0171; J1100; J0690 ×3; J2405; J3010; J1885; J2795 ×2; J0735; 64448; 76942

== ENCOUNTER → 2020-02-12 | Outpatient (CLI) | payer MEDICARE ==
--- NOTE | 2020-02-13 13:40 | MM ---
Reason for exam: screening (asymptomatic). Last mammogram was performed 1 year and 3 months ago. History: Patient is postmenopausal. Excisional biopsy of the left breast. 2 benign excisional biopsies of the right breast. Physical Findings: A clinical breast exam by your physician is recommended on an annual basis and results should be correlated with mammographic findings. MG 3D Screening Mammo W/Cad Bilateral CC and MLO view(s) were taken. Prior study comparison: November 24, 2018, bilateral MG 3d diag mammo w/cad [facility]. November 17, 2017, bilateral MG 3d screening mammo w/cad. There are scattered fibroglandular densities. No significant changes when compared with prior studies. ASSESSMENT: Benign, BI-RAD 2 RECOMMENDATION: Routine screening mammogram of both breasts in 1 year.
== END | disposition home or self-care (01) ==
LOC: RADMAMWWP 14:48
PROVIDERS: ATTEND Family Medicine
DX: Z12.31 Encounter for screening mammogram for malignant neoplasm of breast (principal)
CPT/HCPCS: 77063; 77067

== ENCOUNTER 2020-04-30 09:11 | Day surgery (SDC) | payer MEDICARE ==
[2020-04-23 14:24] VITALS: BMI 33.5
--- NOTE | 2020-04-29 10:00 | HP ---
HISTORY AND PHYSICAL CHIEF COMPLAINT: Left knee stiffness. HISTORY OF PRESENT ILLNESS: The patient is a 69-year-old retired female who presents with left knee stiffness after undergoing total knee arthroplasty on 01/02/2020. She has had adequate rehabilitation with persistence of her stiffness. She has otherwise had an uncomplicated postoperative course. She denies fevers or chills. PAST MEDICAL HISTORY: Significant arthritis, hypercholesterolemia, hypothyroidism. PAST SURGICAL HISTORY: Significant for , cholecystectomy, and left total knee arthroplasty. CURRENT MEDICATIONS: 1. Aspirin. 2. Pravastatin. ALLERGIES: She denies drug allergies. FAMILY HISTORY: Significant cancer. SOCIAL HISTORY: Significant for social alcohol use. REVIEW OF SYSTEMS: Sixteen-point review of systems otherwise reviewed and is noncontributory. PHYSICAL EXAMINATION: On examination, the patient is approximately 5 feet 3 inches, 192 pounds of endomorphic habitus. HEENT exam is nonfocal. Neck is supple. She has painless passive motion of the left hip. Straight leg raise is negative. Active motion left knee -12 to 85 degrees of flexion. The incision is well healed. There is no warmth or erythema. She has a mild effusion. She is stable with valgus stress. Homans are negative. Her distal neurovascular exam appears intact in the left lower extremity. X-rays to include 2 views of the left knee obtained in the office show a total knee arthroplasty with components in good position. IMPRESSION: Status post left total knee arthroplasty with arthrofibrosis. RECOMMENDATIONS: I talked to the patient at length regarding her condition and treatment options. At this point, she is having persistence of significant stiffness despite adequate rehabilitation. After thorough discussion, she opts to proceed with manipulation under anesthesia utilizing IV sedation. She is given a prescription for Medrol Dosepak to begin directly after the procedure, along with continuation of her therapy. The risks and benefits were discussed at length in layman's terms. MMODL / IJN: [id number] /
[~2020-04-30 09:11] MED LIST changes: -HYDROmorphone 0.5 MG/0.5 ML SYRINGE IVP PRN; +LACTATED RINGERS 1,000 ML IV SCH; -MIDAZOLAM 2 MG/2 ML VIAL IV PRN; -ROPIVACAINE 246.25 MG, EPINEPHrine 0.5 MG, KETOROLAC 30 MG, cloNIDine HCL/PF 80 MCG, WA... MISCELLANE ONE; -TRANEXAMIC ACID 1,000 MG in SODIUM CHLORIDE 0.9% 100 ML IVPB ONE
[2020-04-30 09:42] VITALS: TEMP 98
[2020-04-30] MEDS ORDERED: LACTATED RINGERS 1,000 ML IV ONE (09:42)
[2020-04-30] MEDS ORDERED: ONDANSETRON 4 MG/2 ML VIAL ONE (09:44)
[2020-04-30] MEDS ORDERED: LIDOCAINE 1% (10MG/ML) FOR IV START INTRADERMA ONE (09:47)
[2020-04-30] MEDS: ONDANSETRON 4 MG/2 ML VIAL IVP ONE ×2 (09:48→10:37)
[2020-04-30] MEDS ORDERED: DEXAMETHASONE SOD PHOSPHATE 4 MG/ML 1 ML VIAL IVP ONE (09:48)
[2020-04-30] MEDS ORDERED: PROPOFOL 10 MG/ML 20 ML VIAL IV ONE (10:04)
--- NOTE | 2020-04-30 10:22 | P.OP ---
Date of Procedure: 04/30/20 Preoperative Diagnosis: Arthrofibrosis left knee status post total knee arthroplasty Postoperative Diagnosis: Same Procedure(s) Performed: Manipulation under anesthesia left knee Anesthesia: MAC Surgeon: Nathan Enriquez Estimated Blood Loss (ml): 0 Pathology: none sent Condition: stable Disposition: PACU Indications for Procedure: The patient's a 69-year-old female who presents with persistent left knee stiffness after undergoing total knee arthroplasty despite adequate rehabil itation. A discussion the risks and benefits of manipulation under anesthesia was made with the patient. She opted proceed. Risks of this procedure to include fracture, tendon rupture, possible recurrence of stiffness was discussed. Informed consent was obtained. Operative Findings: As below Description of Procedure: The patient was brought to the recovery room, and after induction of IV sedation I gently manipulated the left knee. I encountered moderate adhesions. I was able to obtain 120 of flexion up from 85. I was also able to obtain full extension. She was then monitored until fully awake. No complications were incurred. There was no blood loss.
[2020-04-30] MEDS: HYDROmorphone 1 MG/ML 1 ML SYRINGE IVP ONE ×2 (10:26→10:32)
[2020-04-30] MEDS ORDERED: KETOROLAC 15 MG/ML 1 ML VIAL IVP ONE (10:30)
[2020-04-30] MEDS ORDERED: HYDROmorphone 0.5 MG/0.5 ML SYRINGE IVP ONE (10:41)
[2020-04-30 10:48] VITALS: RESP 16
[2020-04-30 11:34] VITALS: BP 157/75; PULSE 75
== END 2020-04-30 11:50 | disposition home or self-care (01) ==
LOC: OR 09:11
PROVIDERS: ATTEND Orthopaedic Surgery
DX: M24.662 Ankylosis, left knee (principal); Z96.652 Presence of left artificial knee joint; M19.90 Unspecified osteoarthritis, unspecified site; E78.00 Pure hypercholesterolemia, unspecified; E03.9 Hypothyroidism, unspecified; Z98.891 History of uterine scar from previous surgery; E78.5 Hyperlipidemia, unspecified; Z87.891 Personal history of nicotine dependence; Z79.890 Hormone replacement therapy; Z79.891 Long term (current) use of opiate analgesic; Z79.82 Long term (current) use of aspirin; Z79.899 Other long term (current) drug therapy; Z97.2 Presence of dental prosthetic device (complete) (partial)
CPT/HCPCS: 27570; J1100; J2405; J1170 ×2; J1885; J2704

== ENCOUNTER → 2021-04-29 | Outpatient (CLI) | payer MEDICARE ==
--- NOTE | 2021-04-29 19:23 | BD ---
EXAMINATION TYPE: Axial Bone Density DATE OF EXAM: 04/29/2021 COMPARISON: 2018 CLINICAL HISTORY: post menopausal Height: 5'2 Weight: 198 FRAX RISK QUESTIONS: Secondary Osteoporosis: RISK FACTORS HISTORY OF: Family History of Osteoporosis: y Postmenopausal woman: y MEDICATIONS: Thyroid Medications: Which medication: Synthroid How Lon years Additional Medications: cholesterol Additional History: EXAM MEASUREMENTS: Bone mineral densitometry was performed using the [employer]. Bone mineral density as measured about the Lumbar spine is: ----- L1-L4(G/cm2): 1.297 T Score Values are as follows: ----- L2: 0.2 ----- L3: 2.4 ----- L4: 1.6 ----- L1-L4 :1.0 Bone mineral density has: Decreased -1.3% since study of: 11/24/2018 Bone mineral density about the R hip (g/cm2): 0.908 Bone mineral density about the L hip (g/cm2): 0.825 T Score values are as follows: -----R Neck: -0.9 -----L Neck: -1.5 -----R Total: -0.1 -----L Total: -0.8 Bone mineral density has: Decreased -3.0% since study of: 11/24/2018 IMPRESSION: Osteopenia (T Score between -2.5 and -1). There is slightly increased risk of fracture and the patient may be considered for treatment. Re-Screen 2-5 years. NOTE: T-SCORE=SD OF THE YOUNG ADULT MEAN.
--- NOTE | 2021-04-30 08:58 | MM ---
Reason for exam: screening (asymptomatic). Last mammogram was performed 1 year and 3 months ago. History: Patient is postmenopausal. Excisional biopsy of the left breast. 2 benign excisional biopsies of the right breast. Physical Findings: A clinical breast exam by your physician is recommended on an annual basis and results should be correlated with mammographic findings. MG Screening Mammo w CAD Bilateral CC and MLO view(s) were taken. Prior study comparison: February 12, 2020, bilateral MG 3d screening mammo w/cad. November 24, 2018, bilateral MG 3d diag mammo w/cad [facility]. The breast tissue is heterogeneously dense. This may lower the sensitivity of mammography. Focal asymmetry inner lower right breast zone B/C. This finding is changed when compared with previous exams. ASSESSMENT: Incomplete: need additional imaging evaluation, BI-RAD 0 RECOMMENDATION: Special view mammogram of the right breast. If lesion persists on supplemental views, image directed ultrasound is recommended. [facility] will attempt to contact patient to return for supplemental views and ultrasound if indicated.
== END | disposition home or self-care (01) ==
LOC: RADMAMWWP 12:43
PROVIDERS: ATTEND Family Medicine
DX: Z12.31 Encounter for screening mammogram for malignant neoplasm of breast (principal); Z78.0 Asymptomatic menopausal state; M85.852 Other specified disorders of bone density and structure, left thigh
CPT/HCPCS: 77067; 77080

== ENCOUNTER → 2021-05-01 | Outpatient (CLI) | payer MEDICARE ==
--- NOTE | 2021-05-02 11:26 | MM ---
Reason for exam: additional evaluation requested from abnormal screening. Last mammogram was performed less than 1 month ago. History: Patient is postmenopausal. Excisional biopsy of the left breast. 2 benign excisional biopsies of the right breast. Physical Findings: A clinical breast exam by your physician is recommended on an annual basis and results should be correlated with mammographic findings. MG 3D Work Up W/Cad RT Spot compression CC, spot compression MLO, and LM view(s) were taken of the right breast. Prior study comparison: April 29, 2021, bilateral MG screening mammo w CAD. February 12, 2020, bilateral MG 3d screening mammo w/cad. The breast tissue is heterogeneously dense. This may lower the sensitivity of mammography. Finding: There is a 12 mm equal density (isodense) mass in the lower quadrant, central position of the right breast. These results were verbally communicated with the patient and result sheet given to the patient on 05/01/21. ASSESSMENT: Incomplete: need additional imaging evaluation, BI-RAD 0 RECOMMENDATION: Ultrasound of the right breast.
--- NOTE | 2021-05-02 11:28 | USB ---
Reason for exam: additional evaluation requested from abnormal screening. History: Patient is postmenopausal. Excisional biopsy of the left breast. 2 benign excisional biopsies of the right breast. US Breast Workup Limited RT Right limited breast ultrasound including focal area of concern, retroareolar and axilla demonstrates a 0.5 x 0.4 x 0.3cm hypoechoic lesion at 6 o'clock. These results were verbally communicated with the patient and result sheet given to the patient on 05/01/21. ASSESSMENT: Suspicious, BI-RAD 4 RECOMMENDATION: Surgical consultation and stereotactic core biopsy of the right breast. Called Dr. Shah's office with mammographic findings and has scheduled an appointment for the patient for 06/19/21 at 10:[address] Hewitt. Biopsy scheduled for 05/26/21 at 7:00. PRELIMINARY REPORT CALLED AND FAXED TO DR. HEWITT ON 05/02/21.
== END | disposition home or self-care (01) ==
LOC: RADMAMWWP 14:45
PROVIDERS: ATTEND Family Medicine
DX: R92.8 Other abnormal and inconclusive findings on diagnostic imaging of breast (principal); Z78.0 Asymptomatic menopausal state
CPT/HCPCS: 77065; 76642; G0279; 77061

== ENCOUNTER → 2021-09-08 | Outpatient (CLI) | payer MEDICARE ==
--- NOTE | 2021-09-26 06:47 | BMR ---
EXAMINATION TYPE: MR breast BILAT wo/w con DATE OF EXAM: 09/17/2021 CLINICAL HISTORY: New diagnosis right breast 5 o'clock position, 6 o'clock position 4 cm from the nipple, and 6 o'clock position 2 cm from the nipple solid papillary carcinoma in situ. No other history provided. Comparison: Screening bilateral breast mammogram April 29, 2021 BI-RADS 0. 3-D diagnostic right breast mammogram May 01, 2021 BI-RADS 0. Diagnostic Limited right breast ultrasound May 01, 2021 BI-RAD S 4. TECHNIQUE: PULSE SEQUENCES: Multiplanar, multisequence MR images of the breast were obtained on an MRI imaging s canner. Pre-contrast coronal STIR obtained using the body coil. Pre-contrast axial T2 fat saturated, pre-contrast non-fat saturated T1, and one pre- and five post-co ntrast fat-saturated images were obtained of both breasts together with the breast coil. Post-processed subtraction and MIP reconstructions were then generated. Dynamic images were spatially registered using the Bring Light software package, and dynamic c urves and parametric images were evaluated. The patient was injected with 9 mL intravenous Gadavist gadolinium contrast. Three-dimensional and additional postprocessing imaging is created on independent workstation and reviewed during official interpretation of this study. Field of view for the dynamic portion of this study was 38 cm. FINDINGS: The technical quality of this study is considered adequate to make a final assessment and recommendat ion. There is scattered fibroglandular tissue bilaterally and mild background enhancement. Coronal STIR T2 sequence demonstrates normal bilateral axillary lymph nodes. Axial T2 sequence demonstrates no cysts or fluid collections. Signal void is seen at the 6 o'clock position of the right breast, best seen in axial image 56 series 401. Delayed dynamic postcontrast imaging shows no suspicious internal mammary adenopathy. Regarding the right breast: Centered at the 6 o'clock position, and extending into the nipple and to the medial breast, there is segmental distribution non mass enhancement measuring 9.1 x 6.3 x 3.2 cm. Internal enhancement is heterogeneous. Kinetic assessment demonstrates fast initial enhancement follo wed by washout in the delayed portions of the curve. Regarding the left breast: There are no masses, architectural distortion or suspicious areas of enhan cement. IMPRESSION: Known right malignancy is identified as segmental distribution non mass enhancement measuring a maxim um extent of 9.1 cm as described in detail on the body of the report. No evidence of malignancy in the left breast. No lymphadenopathy. Areas of signal void in the right breast may represent calcification versus marker clips, correlation with post biopsy mammogram is recommended. The latter is suspected. Recommendations: Appropriate action be taken of the known right breast malignancy.. BI-RADS category 6, known biopsy proven malignancy right breast. BI-RADS category 1, negative left breast. I have reviewed and agreed with the above report.
== END | disposition home or self-care (01) ==
LOC: RADMRIMAIN 08:55
PROVIDERS: ATTEND Surgery
DX: C50.911 Malignant neoplasm of unspecified site of right female breast (principal)
CPT/HCPCS: C8908; A9585; 77049

== ENCOUNTER 2021-10-24 07:07 | Day surgery (SDC) | payer MEDICARE ==
[2021-10-23 11:05] VITALS: BMI 35.4
--- NOTE | 2021-10-23 15:57 | P.GSHP ---
History of Present Illness H&P Date: 10/23/21 Chief Complaint: Right breast cancer 71-year-old female underwent recent workup for right breast abnormality. Stereotactic core biopsy shows papillary carcinoma in situ. 3 sites were biopsied. She is ER/OK positive. She underwent MRI to better evaluate the size of this area which demonstrated a 9 cm span of abnormal enhancement consistent with normal malignancy. Patient was seen by oncology preoperatively. Was presented at our multidisciplinary tumor board. Simple mastectomy with sentinel lymph node biopsy was advised. Patient is agreeable. Patient has declined evaluation by plastic surgery for reconstruction. Past Medical History Past Medical History: Cancer, Hyperlipidemia, Osteoarthritis (OA), Thyroid Disorder Additional Past Medical History / Comment(s): CURRENT RIGHT BREAST CANCER. HX MIGRAINES, NONE IN 10-15 YRS. History of Any Multi-Drug Resistant Organisms: None Reported Past Surgical History: Breast Surgery, Section, Cholecystectomy, Joint Replacement Additional Past Surgical History / Comment(s): "Stones removed from salivary gland", left knee replacement, several breast biopsies. Past Anesthesia/Blood Transfusion Reactions: No Reported Reaction Past Psychological History: No Psychological Hx Reported Smoking Status: Former smoker Past Alcohol Use History: Occasional Additional Past Alcohol Use History / Comment(s): Quit smoking in 2004, smoked for 35 yrs. Past Drug Use History: None Reported - Past Family History Brother(s) Family Medical History: Cancer Father Family Medical History: Cancer Additional Family Medical History / Comment(s): Prostate cancer. Medications and Allergies Home Medications Medication Instructions Recorded Confirmed Type Levothyroxine Sodium [Synthroid] 75 mcg PO QAM 08/15/13 10/23/21 History Pravastatin Sodium [Pravachol] 40 mg PO HS 08/15/13 10/23/21 History Calcium Carbonate/Vitamin D3 1 tab PO DAILY 12/22/17 10/23/21 History [Calcium 600-Vit D3 500 Softgel] Cholecalciferol [Vitamin D3] 5,000 unit PO DAILY 12/22/17 10/23/21 History Otc Allergy Relief 1 tab PO DAILY 10/23/21 10/23/21 History Otc Nasal [place] 1 spray NASAL DAILY 10/23/21 10/23/21 History Allergies Allergy/AdvReac Type Severity Reaction Status Date / Time No Known Allergies Allergy Verified 10/23/21 10:52 Surgical - Exam Physical exam: General: Well-developed, well-nourished HEENT: Normocephalic, sclerae nonicteric Right breast: Biopsy site changes right breast outer quadrant, no adenopathy Left breast: No masses, no adenopathy Abdomen: Nontender, nondistended Extremities: No edema Neuro: Alert and oriented Assessment and Plan (1) Breast cancer, right Narrative/Plan: 71-year-old female with stage 0 right breast cancer. We'll proceed with simple mastectomy with sentinel lymph node biopsy/injection tomorrow. Risks of bleeding, infection, scarring, dehiscence, ischemic changes, recurrence, seroma, nerve injury, numbness. Patient understands and wishes to proceed. Status: Acute Code(s): C50.911 - MALIGNANT NEOPLASM OF UNSP SITE OF RIGHT FEMALE BREAST SNOMED Code(s): 262352551
[~2021-10-24 07:07] MED LIST changes: +ACETAMINOPHEN TAB 500 MG TAB PO PRN; +DEXAMETHASONE SOD PHOSPHATE 4 MG/ML 1 ML VIAL IV ONE; +HEPARIN SODIUM,PORCINE/PF 5,000 UNIT/0.5 ML SYRINGE SQ PRN; +HYDROmorphone 0.5 MG/0.5 ML SYRINGE IVP PRN; -LIDOCAINE 1% (10MG/ML) FOR IV START INTRADERMA PRN; +MIDAZOLAM 2 MG/2 ML VIAL IV PRN; +ONDANSETRON 4 MG/2 ML VIAL IVP ONE; +Pre Op ABX Message 1 EACH MISC MISCELLANE ONE
[2021-10-24] MEDS ORDERED: LACTATED RINGERS 1,000 ML IV ONE (08:04)
[2021-10-24] MEDS ORDERED: ceFAZolin 1,000 MG VIAL ONE (09:10)
[2021-10-24] MEDS ORDERED: SUCCINYLCHOLINE CHLORIDE 200 MG/10 ML VIAL IV ONE (09:10)
[2021-10-24] MEDS ORDERED: PROPOFOL 10 MG/ML 20 ML VIAL IV ONE (09:10)
[2021-10-24] MEDS ORDERED: GLYCOPYRROLATE 0.2 MG/ML 2 ML VIAL ONE (09:10)
[2021-10-24] MEDS ORDERED: MIDAZOLAM 2 MG/2 ML VIAL ONE (09:10)
[2021-10-24] MEDS ORDERED: ROCURONIUM 10 MG/ML (5 ML VIAL) IV ONE (09:10)
[2021-10-24] MEDS ORDERED: fentaNYL (PF) 50 MCG/ML 2 ML AMP ONE (09:10)
[2021-10-24] MEDS ORDERED: LIDOCAINE 2% INJ 20 MG/ML (2 ML VIAL) ONE (09:10)
[2021-10-24] MEDS ORDERED: NEOSTIGMINE 1 MG/ML 10 ML VIAL ONE (09:10)
--- NOTE | 2021-10-24 09:12 | P.NAPBC ---
NAPBC Queries - NAPBC Queries Was patient's case review presented at [facility] tumor board? If no, comment.: Yes Was patient's pathology reviewed at [facility]? If no, comment.: Yes Was breast conservation surgery offered? If no, comment.: Yes Was sentinel node biopsy offered? If no, comment.: Yes Was diagnosis confirmed by percutaneous core biopsy? If no, comment.: Yes Is patient mastectomy patient?: Yes Was a preop referral to reconstructive surgeon offered?: Yes Clinical Stage: 0
[2021-10-24] MEDS ORDERED: SODIUM CHLORIDE 0.9% 50 ML with ceFAZolin 2,000 MG IV ONE ×2 (09:16)
[2021-10-24] MEDS ORDERED: METHYLENE BLUE 10 MG/ML (10 ML VIAL) INJ ONE (09:34)
[2021-10-24] MEDS ORDERED: NALOXONE 0.4 MG/ML 1 ML VIAL IV PRN (11:17)
[2021-10-24] MEDS ORDERED: ONDANSETRON 4 MG/2 ML VIAL IVP PRN (11:18)
--- NOTE | 2021-10-24 11:22 | P.OP ---
Date of Procedure: 10/24/21 Procedure(s) Performed: PREOPERATIVE DIAGNOSIS: Right breast cancer POSTOPERATIVE DIAGNOSIS: Same PROCEDURE: Right breast mastectomy with sentinel lymph node biopsy SURGEON: Kash EBL: Minimal ANESTHESIA: General COMPLICATIONS: None OPERATIVE PROCEDURE: Patient was placed on the operating room table in the supine position. 2 mL of methylene blue was injected into the subareolar space. The breast was then massaged for 5 minutes. Using the skin marker the proposed incision sites were drawn out on the chest wall. The superior incision was first created. The incision was elliptical in nature encompassing the nipple areolar complex. Flaps were raised superiorly until the chest wall was reached. The axilla was then addressed. Blunt dissection did reveal immediately 2 hot and blue lymph nodes along with the feeding blue colored lymphatic vessel. The patient's blue colored lymphatic vessel was also quite radioactive and was excised and sent with the lymph nodes. No additional radioactivity was noted. These had a benign appearance and were sent for permanent sectioning. The mastectomy incision was then created inferiorly and flaps were again raised until the chest wall was reached. The breast was removed from the chest wall using electrocautery. Multiple vessels were divided using either electrocautery or the clip radio interference expert. The area was irrigated. No bleeding was seen. A drain was placed beneath the flaps of the mastectomy incision. The subcutaneous tissues were then closed using 3-0 Vicryl sutures and the skin was closed using a running 4-0 Monocryl stitch. Exofin tape dressing was used along the entire length of the incision. The drain was sutured in place using a 3-0 silk stitch. DISPOSITION: Stable to recovery room
--- NOTE | 2021-10-24 11:44 | NM ---
EXAMINATION TYPE: NM sentinel node injection DATE OF EXAM: 10/24/2021 COMPARISON: NONE INDICATION: Abnormal mammogram. Informed consent was obtained. A timeout was performed. The area around the right nipple was cleansed with alcohol. In a single dose, a total of 480 uCi Te chnetium 99m Tilmanocept was injected. The patient tolerated the procedure very well. IMPRESSIONS: 1. Successful injection for sentinel node evaluation.
[2021-10-24] MEDS ORDERED: SODIUM CHLORIDE 0.9% 1,000 ML IV ONE (12:06)
[2021-10-24] MEDS: HYDROcodone/APAP 5-325MG 1 EACH TAB PO PRN ×3 (13:03→22:16)
[2021-10-24 13:38] VITALS: RESP 16
--- NOTE | 2021-10-24 14:45 | P.CONS ---
History of Present Illness - Reason for Consult Consult date: 10/24/21 - History of Present Illness Patient is a 71-year-old female with PMH of dyslipidemia, hypothyroidism, right- sided papillary carcinoma of the breast and underwent right-sided breast mastectomy with sentinel lymph node biopsy with Dr. Hewitt. She's been admitted overnight for observation. [facility] has been consulted for medical management of this patient. Patient was seen and examined after surgery. She reports well-controlled pain in her right breast. She has no complaints. She has been unable to urinate since her surgery. She denies any headache, lower extremity edema, nausea or vomiting, fever or chi lls, cough, chest pain, shortness of breath, palpitations. No changes in appetite or weight. She denies any dizziness, numbness/weakness/tingling of extremities. Nursing had concerns with regard to her elevated BP of 155/66, pulse of 72. Review of systems is performed and is negative except above. General: [non toxic], [no distress], [appears at stated age] Derm: [warm], [dry], [right-sided mastectomy with dressing clean dry and intact with CHELSIE drain draining red serosanguineous fluid] Head: [atraumatic], [normocephalic], [symmetric] Eyes: [EOMI], [no lid lag], [anicteric sclera] Mouth: [no lip lesion], [mucus membranes moist] Cardiovascular: [S1S2 reg], [no murmur] Lungs: [CTA bilateral], [no rhonchi, no rales] , [no accessory muscle use] Ext: [no gross muscle atrophy], [no edema], [no contractures] Neuro: [no focal neuro deficits] Psych: [Alert], [oriented], [appropriate affect] #Elevated BP #Hypothyroidism #Dyslipidemia #Obesity with BMI 35.6 #Papillary carcinoma of the right breast status post mastectomy POD 0 I would continue to monitor her blood pressure at this time. Patient reports BP normally 120s over 70s. Ensure adequate pain control. Attempt voiding trial. Bladder scan as needed. We will restart Synthroid. We will restart pravastatin. Patient would benefit from a structured weight loss program. Management as per surgery. CBC and BMP ordered for tomorrow morning. DVT prophylaxis: [Heparin] Discussed with: [Patient, nursing] Anticipated discharge: [1-2 days] Anticipated discharge place: [Home] A total of [35] minutes was spent on the care of this complex patient more than 50% of the time was spent in counseling and care coordination. Thank you for this consultation. Please call [facility] with any additional questions or concerns. Past Medical History Past Medical History: Cancer, Hyperlipidemia, Osteoarthritis (OA), Thyroid Disorder Additional Past Medical History / Comment(s): CURRENT RIGHT BREAST CANCER. HX MIGRAINES, NONE IN 10-15 YRS. History of Any Multi-Drug Resistant Organisms: None Reported Past Surgical History: Breast Surgery, Section, Cholecystectomy, Joint Replacement Additional Past Surgical History / Comment(s): "Stones removed from salivary gland", left knee replacement, several breast biopsies. Past Anesthesia/Blood Transfusion Reactions: No Reported Reaction Past Psychological History: No Psychological Hx Reported Smoking Status: Former smoker Past Alcohol Use History: Occasional Additional Past Alcohol Use History / Comment(s): Quit smoking in 2004, smoked for 35 yrs. Past Drug Use History: None Reported - Past Family History Brother(s) Family Medical History: Cancer Father Family Medical History: Cancer Additional Family Medical History / Comment(s): Prostate cancer. Medications and Allergies Home Medications Medication Instructions Recorded Confirmed Type Levothyroxine Sodium [Synthroid] 75 mcg PO QAM 08/15/13 10/23/21 History Pravastatin Sodium [Pravachol] 40 mg PO HS 08/15/13 10/23/21 History Calcium Carbonate/Vitamin D3 1 tab PO DAILY 12/22/17 10/23/21 History [Calcium 600-Vit D3 500 Softgel] Cholecalciferol [Vitamin D3] 5,000 unit PO DAILY 12/22/17 10/23/21 History Otc Allergy Relief 1 tab PO DAILY 10/23/21 10/23/21 History Otc Nasal [place] 1 spray NASAL DAILY 10/23/21 10/23/21 History Allergies Allergy/AdvReac Type Severity Reaction Status Date / Time No Known Allergies Allergy Verified 10/23/21 10:52 Physical Exam Vitals: Vital Signs Temp Pulse Pulse Resp BP BP Pulse Ox 10/24/21 14:00 72 16 155/66 95 10/24/21 13:30 66 16 146/89 95 10/24/21 13:00 68 16 151/93 10/24/21 12:45 63 18 142/87 10/24/21 12:30 96.3 F L 55 L 16 142/74 97 10/24/21 12:04 58 L 16 142/67 96 10/24/21 11:49 57 L 16 146/69 96 10/24/21 11:35 59 L 16 159/76 96 10/24/21 11:20 97.3 F L 74 14 160/72 93 L 10/24/21 07:40 97.8 F 88 18 176/81 97 Intake and Output 10/23/21 10/24/21 10/24/21 22:59 06:59 14:59 Intake Total 1150 Output Total 50 Balance 1100 Intake: IV 1050 Oral 100 Output: Estimated Blood Loss 50 Other: Weight 89.6 kg
[2021-10-24] MEDS: D5-0.45% NACL WITH KCL 20MEQ/L 1,000 ML IV SCH (18:06)
[2021-10-24] MEDS ORDERED: PRAVASTATIN SODIUM 40 MG TAB PO SCH (21:00)
[2021-10-24] MEDS: HEPARIN SODIUM,PORCINE/PF 5,000 UNIT/0.5 ML SYRINGE SQ SCH (21:15)
[2021-10-24] MEDS: DOCUSATE 100 MG CAP PO SCH (21:30)
[2021-10-24] MEDS ORDERED: MELATONIN 5 MG TABLET PO SCH (22:00)
[2021-10-25] MEDS: D5-0.45% NACL WITH KCL 20MEQ/L 1,000 ML IV SCH (04:07)
[2021-10-25] MEDS ORDERED: LEVOTHYROXINE 75 MCG TAB PO SCH (06:30)
[2021-10-25 07:03] LABS: HCT 41.3 % (34.0-46.0); HGB 13.3 gm/dL (11.4-16.0); MCHC 32.2 g/dL (31.0-37.0); MCV 93.2 fL (80.0-100.0); Platelet Count 231 k/uL (150-450); RBC 4.43 m/uL (3.80-5.40); RDW 12.7 % (11.5-15.5); WBC 10.5 k/uL (3.8-10.6)
[2021-10-25 07:12] LABS: African American GFR (CKD) >90 (>60 ml/min/1.73 sqM); Anion Gap 10 mmol/L; Blood Urea Nitrogen 8 mg/dL (7-17); Calcium 8.8 mg/dL (8.4-10.2); Carbon Dioxide 21 mmol/L (22-30); Chloride 107 mmol/L (98-107); Glucose 131 mg/dL (74-99); Non-African American GFR(CKD) >90 (>60 ml/min/1.73 sqM); Potassium 4.3 mmol/L (3.5-5.1); Sodium 138 mmol/L (137-145)
[2021-10-25 08:51] VITALS: BP 126/64; PULSE 90; TEMP 99.4
[2021-10-25] MEDS ORDERED: PANTOPRAZOLE 40 MG/10 ML VIAL IV SCH (09:00)
[2021-10-25] MEDS: DOCUSATE 100 MG CAP PO SCH (09:09)
[2021-10-25] MEDS: HEPARIN SODIUM,PORCINE/PF 5,000 UNIT/0.5 ML SYRINGE SQ SCH (09:17)
--- NOTE | 2021-10-25 11:22 | P.DS ---
Providers Expected date of discharge: 10/25/21 Attending physician: Anam Hewitt Consults: 10/24/21 11:18 Consult Physician Routine Consulting Provider: Brenna Lea Consult Reason/Comments: Medical management Do you want consulting provider notified?: Yes Primary care physician: Dale Bernard - Discharge Diagnosis(es) (1) Breast cancer, right Patient admitted for elective right simple mastectomy with sentinel lymph node biopsy. She is doing well today. Denies pain. Labs stable. She would like to go home. Incision is clean and dry, no evidence of ischemia or hematoma formati on. June discharge. Follow-up one week. Current Visit: No Status: Acute Plan - Discharge Summary Discharge Rx Participant: No New Discharge Prescriptions: New Docusate [Colace] 100 mg PO BID #30 cap traMADol HCl [Ultram] 50 mg PO Q6H PRN #10 tab PRN Reason: Pain Continue Pravastatin Sodium [Pravachol] 40 mg PO HS Levothyroxine Sodium [Synthroid] 75 mcg PO QAM Cholecalciferol [Vitamin D3 (25 Mcg = 1000 Iu)] 5,000 unit PO DAILY Calcium Carbonate/Vitamin D3 [Calcium 600-Vit D3 12.5 Mcg (500 Iu)] 1 tab PO DAILY Otc Nasal [place] 1 spray NASAL DAILY Otc Allergy Relief 1 tab PO DAILY Discharge Medication List Levothyroxine Sodium [Synthroid] 75 mcg PO QAM 08/15/13 [History] Pravastatin Sodium [Pravachol] 40 mg PO HS 08/15/13 [History] Calcium Carbonate/Vitamin D3 [Calcium 600-Vit D3 12.5 Mcg (500 Iu)] 1 tab PO DAILY 12/22/17 [History] Cholecalciferol [Vitamin D3 (25 Mcg = 1000 Iu)] 5,000 unit PO DAILY 12/22/17 [History] Otc Allergy Relief 1 tab PO DAILY 10/23/21 [History] Otc Nasal [place] 1 spray NASAL DAILY 10/23/21 [History] Docusate [Colace] 100 mg PO BID #30 cap 10/25/21 [Rx] traMADol HCl [Ultram] 50 mg PO Q6H PRN #10 tab 10/25/21 [Rx] Follow up Appointment(s)/Referral(s): [facility], [NON-STAFF] - 1-2 Days
--- NOTE | 2021-10-25 16:09 | P.PN ---
Subjective Progress Note Date: 10/25/21 Principal diagnosis: S/p R mastectomy 71-year-old female with history of dyslipidemia, hypothyroidism, right-sided papillary carcinoma left breast presented for right-sided breast mastectomy with sentinel lymph node biopsy with Dr. Hewitt. [facility] was consulted for medical management of this patient. Patient denies any pain at the moment. She denies any shortness of breath, cough, abdominal pain, nausea, vomiting, urinary, or bowel problems. She no longer has any urinary retention. She feels ready for discharge. She claims that she has for the follow-up with oncology, radiation oncology, and surgery. Pertinent positives and negatives as discussed above, a complete review of systems was performed and all other systems are negative. Vital signs reviewed. Blood pressure better controlled. General: nontoxic, no distress, appears at stated age Derm: warm, dry, status post right-sided mastectomy, has dressing dry and intact with CHELSIE drain draining red serosanguineous fluid Head: atraumatic, normocephalic, symmetric Eyes: EOMI, no lid lag, anicteric sclera Mouth: no lip lesion, mucus membranes moist Cardiovascular: S1S2 reg, no murmur, positive posterior tibial pulse bilateral, Lungs: CTA bilateral, no rhonchi, no rales , no accessory muscle use Abdominal: soft, nontender to palpation, no guarding, no appreciable organomegaly Ext: no gross muscle atrophy, no edema, no contractures Neuro: CN II-XI grossly intact, no focal neuro deficits Psych: Alert, oriented, appropriate affect Labs reviewed. Assessment and plan: Hypertension -Resolved Hypothyroidism Dyslipidemia Obesity Papillary carcinoma of right breast status post mastectomy Patient is medically optimized for discharge home. Would recommend close follow-up by PCP and surgery. Patient also has an appointment with oncology and radiation oncology. Rest of the care per primary team. Objective - Vital Signs Vital signs: Vital Signs Temp 99.4 F 10/25/21 08:48 Pulse 90 10/25/21 08:48 Resp 16 10/25/21 08:48 BP 126/64 10/25/21 08:48 Pulse Ox 96 10/25/21 01:00 FiO2 Intake & Output 10/24/21 10/25/21 10/25/21 18:59 06:59 18:59 Intake Total 1150 Output Total 175 28 70 Balance 975 -28 -70 Weight 89.6 kg Intake: IV 1050 Oral 100 Output: Drainage 25 28 70 Right Chest 25 28 70 Urine 100 Estimated Blood Loss 50 Other: # Voids 1 1 1 - Labs CBC & Chem 7: 10/25/21 06:45 10/25/21 06:45 Labs: Abnormal Lab Results - Last 24 Hours (Table) 10/25/21 Range/Units 06:45 Carbon Dioxide 21 L (22-30) mmol/L Glucose 131 H (74-99) mg/dL
== END 2021-10-25 12:07 | disposition home or self-care (01) ==
LOC: OR 07:07 → 4FBP 12:14 → OR 10-25 12:07
PROVIDERS: ATTEND Surgery
DX: C50.911 Malignant neoplasm of unspecified site of right female breast (principal); E78.5 Hyperlipidemia, unspecified; M19.90 Unspecified osteoarthritis, unspecified site; E07.9 Disorder of thyroid, unspecified; G43.909 Migraine, unspecified, not intractable, without status migrainosus; Z87.19 Personal history of other diseases of the digestive system; Z98.890 Other specified postprocedural states; Z98.891 History of uterine scar from previous surgery; Z87.891 Personal history of nicotine dependence; F10.99 Alcohol use, unspecified with unspecified alcohol-induced disorder; Z80.42 Family history of malignant neoplasm of prostate; Z79.890 Hormone replacement therapy; Z79.899 Other long term (current) drug therapy
CPT/HCPCS: 19303; 14000; 97110; 97162; 80048; 85027; 38792; A9520; J2250; J0330; J1100; J2710; J2405; J0690; Q9968; J3010; J2704; C9113; J1170; J1644 ×2; J2001; 88307; 88341; 88342

== ENCOUNTER → 2022-05-27 | Outpatient (CLI) | payer MEDICARE ==
--- NOTE | 2022-05-27 14:35 | MM ---
Reason for Exam: Hx of breast cancer, mastectomy. Last mammogram was performed 1 year(s) and 1 month(s) ago. Patient History: Menarche at age 12. First Full-Term at age 19. Postmenopausal. Breast cancer, right, age 70. 2021, Mastectomy on the Right side. Benign Excisional Biopsy on the right side. Benign Excisional Biopsy on the right side. Excisional Biopsy on the Left side. 05/26/2021, MG discontinued stereo core RT on the right side. Prior Study Comparison: 02/12/2020 Bilateral Screening Mammogram, [facility]. 04/29/2021 Bilateral Screening Mammogram, [facility]. 05/01/2021 Right Diagnostic Mammogram, [facility]. Tissue Density: Left: There are scattered fibroglandular densities. Findings: Analyzed By CAD. There are benign-appearing round calcifications in the left breast redemonstrated. No suspicious new mass or worrisome cluster of microcalcifications in the left breast. Overall Assessment: Benign, BI-RAD 2 Management: Diagnostic Mammogram of the left breast in 1 year. Return to routine follow-up. Results were given to the patient verbally at the time of exam. Electronically signed and approved by: Chaparro Lora M.D.
== END | disposition home or self-care (01) ==
LOC: RADMAMWWP 14:02
PROVIDERS: ATTEND Surgery
DX: R92.8 Other abnormal and inconclusive findings on diagnostic imaging of breast (principal); Z78.0 Asymptomatic menopausal state; Z85.3 Personal history of malignant neoplasm of breast
CPT/HCPCS: 77065; G0279; 77061

== ENCOUNTER → 2022-11-10 | Outpatient (CLI) | payer MEDICARE ==
--- NOTE | 2022-11-10 10:34 | XR ---
Right wrist History: Pain without trauma COMPARISON: None. TECHNIQUE: 2 views right wrist are obtained. FINDINGS: Mild degenerative changes of the scaphoid trapezium articulation, the first carpometacarpal articulat ion and the first metacarpophalangeal joint. There are no fractures or dislocations. No focal intraosseous lesions are seen. IMPRESSION: Mild degenerative changes in the radial aspect of the wrist as described above.
== END | disposition home or self-care (01) ==
LOC: RADXRMAIN 09:55
PROVIDERS: ATTEND Family Medicine
DX: M19.031 Primary osteoarthritis, right wrist (principal)

== ENCOUNTER → 2022-11-12 | Outpatient (CLI) | payer MEDICARE ==
--- NOTE | 2022-11-12 15:04 | CT ---
"EXAMINATION TYPE: CT chest wo con DATE OF EXAM: 11/12/2022 COMPARISON: HISTORY: Cough x [address] DLP: 721 mGycm. Automated Exposure Control for Dose Reduction was Utilized. TECHNIQUE: CT scan of the thorax is performed without IV contrast. FINDINGS: LUNGS: The lungs are grossly clear, there is no concerning parenchymal mass or nodule identified. T here is no pleural effusion or pneumothorax seen. The tracheobronchial tree is patent. Emphysematous changes noted. Groundglass changes along the medial aspect of the right lung base most compatible wi th atelectasis. There is a peripheral 2 mm nodule right lower lobe 2. Small characterize but likely benign subcentimeter nodule also seen on image 32 measuring 2 mm. MEDIASTINUM: Lack of IV contrast is noted to limit evaluation for mediastinal and especially hilar ad enopathy. There are no definitive greater than 1 cm hilar or mediastinal lymph nodes. No cardiomega ly or pericardial effusion is seen. Atherosclerotic change aorta. Trace of pericardial fluid. Aorta o f normal caliber. Coronary artery calcification noted. OTHER: Hypertrophic and degenerative change of the spine. Post right mastectomy changes. Punctate ivy cification involving the midpole right kidney. There is a low-density lesion within the pancreas body measuring 9 mm. There is fat attenuation within a small bowel loop in the right upper quadrant likel y related to a small bowel lipoma. IMPRESSION: 1. COPD with very small area of groundglass opacification medial segment right lower lobe most likely on the basis of atelectasis rather than pneumonitis correlate clinically. 2. There is a hypodense lesion within the body the pancreas best noted on axial image 55 and 56 measu ring 9 mm. Recommend MRI or postcontrast CT to exclude a pancreatic neoplasm. 3. Bilateral micronodules have a benign appearance. 4. Punctate nonobstructing 1 mm right renal calculus. A Yellow level critical message alert has been initiated for Jewel Curry MD via the Hyper Urban Level User [place] 36 [id number] | Critical Results System on 11/12/2022 2:58 PM. This message alert has been sent to Jewel Curry MD via the preferences provided by the clinician for the receipt of Radiology Critical Findings. [facility] ID [id number]."
== END | disposition home or self-care (01) ==
LOC: RADCTMAIN 13:51
PROVIDERS: ATTEND Internal Medicine Hematology & Oncology
DX: D05.11 Intraductal carcinoma in situ of right breast (principal); M12.9 Arthropathy, unspecified; J44.9 Chronic obstructive pulmonary disease, unspecified; N20.0 Calculus of kidney; R91.8 Other nonspecific abnormal finding of lung field; K86.89 Other specified diseases of pancreas; Z87.891 Personal history of nicotine dependence; Z71.3 Dietary counseling and surveillance
CPT/HCPCS: 71250

== ENCOUNTER → 2022-12-26 | Outpatient (CLI) | payer MEDICARE ==
--- NOTE | 2022-12-27 17:17 | MR ---
EXAMINATION TYPE: MR pancreas wo/w con DATE OF EXAM: 12/26/2022 3:20 PM CLINICAL INDICATION:Female, 72 years old with history of pancreatic cyst; PHH, Pancreatic cyst COMPARISON: CT scan abdomen from 11/12/2022. TECHNIQUE: Multiplanar multi-sequence imaging was performed without contrast. Post contrast imaging was performed. Post IV contrast subtraction images were also submitted for review. IV Contrast: 9 cc Gadavist FINDINGS: LOWER CHEST: No gross irregularity. The right breast appears surgically absent. ABDOMEN Liver: No evidence for cirrhosis. Signal dropout on chemical shift of phase imaging. No suspicious li ye lesions. Gallbladder and Bile ducts: There is a low signal filling defect within the common bile duct measurin g 11 x 9 mm. Gallbladder surgically absent. The common bile duct is dilated measuring up to 12 mm. Pancreas: No ductal dilation. No evidence for solid mass. There is a cystic high T2 low T1 signal les ion within the pancreatic body measuring at least 17 x 14 x 27 mm which is not demonstrate postcontra st enhancement. Spleen: Normal for size. Adrenal glands: Unremarkable. Kidneys: No evidence for obstructive uropathy. No suspicious renal masses. Simple appearing left lesly l cyst. Stomach and Bowel: No evidence for bowel wall thickening or evidence for obstruction.. Scattered col onic diverticula. Peritoneum: No evidence of pneumoperitoneum or free fluid. Vasculature: No aortic aneurysm. Musculoskeletal: The osseous structures appear intact. Lymph Nodes: No gross evidence for lymphadenopathy. Abdominal wall: Unremarkable. IMPRESSION: 1. Cystic lesion within the pancreatic body/tail measuring 17 x 14 x 27 millimeters and could repres ent sidebranch intraductal papillary mucinous neoplasm versus pseudocyst from priors pancreatitis. 2. Choledocholithiasis with large gallstone in the common bile duct. GI consultation recommended. 3. Colonic diverticulosis. 4. Simple left renal cyst. 5. Mild hepatic steatosis.
== END | disposition home or self-care (01) ==
LOC: RADMRIMAIN 14:24
PROVIDERS: ATTEND Internal Medicine Hematology & Oncology
DX: K80.70 Calculus of gallbladder and bile duct without cholecystitis without obstruction (principal); K57.30 Diverticulosis of large intestine without perforation or abscess without bleeding; K86.2 Cyst of pancreas; N28.1 Cyst of kidney, acquired; K76.0 Fatty (change of) liver, not elsewhere classified; K86.89 Other specified diseases of pancreas
CPT/HCPCS: 74183; A9585

== ENCOUNTER → 2023-05-31 | Outpatient (CLI) | payer MEDICARE ==
--- NOTE | 2023-05-31 11:48 | MM ---
Reason for Exam: Additional evaluation requested from prior study. Last screening mammogram was performed 12 month(s) ago. Patient History: Menarche at age 12. First Full-Term at age 19. Postmenopausal. Patient has history of breast feeding. Breast cancer, right, age 70. 2021, Mastectomy on the Right side. Benign Excisional Biopsy on the right side. Benign Excisional Biopsy on the right side. Excisional Biopsy on the Left side. 05/26/2021, MG discontinued stereo core RT on the right side. Prior Study Comparison: 11/11/2015 Bilateral Screening Mammogram, [facility]. 11/16/2016 Bilateral Screening Mammogram, [facility]. 11/17/2017 Bilateral Screening Mammogram, [facility]. 11/24/2018 Bilateral Diagnostic Mammogram, [facility]. 02/12/2020 Bilateral Screening Mammogram, [facility]. 04/29/2021 Bilateral Screening Mammogram, [facility]. 05/01/2021 Right Diagnostic Mammogram, [facility]. 05/27/2022 Left MG 3D diag mammo w/cad LT, [facility]. Tissue Density: Left: There are scattered areas of fibroglandular density. Findings: Analyzed By CAD. Chronic nodularity. No evidence for new mass or distortion. No suspicious calcifications present. Overall Assessment: Benign, BI-RAD 2 Management: Diagnostic Mammogram of the left breast in 1 year. . Results were given to the patient verbally at the time of exam. Patient should continue monthly self-breast exams. A clinical breast exam by your physician is recommended on an annual basis. This exam should not preclude additional follow-up of suspicious palpable abnormalities. Note on Nichelle scores and lifetime risk: 1. A Nichelle score greater than 3% is considered moderate risk. If this is the case, consider specialist referral to assess eligibility for a risk reducing agent. 2. If overall lifetime risk for the development of breast cancer is 20% or higher, the patient may qualify for future screening with alternating mammogram and breast MRI. Electronically signed and approved by: Danish Hayes M.D. Radiologis
--- NOTE | 2023-05-31 15:14 | BD ---
EXAMINATION TYPE: Axial Bone Density DATE OF EXAM: 05/31/2023 CLINICAL HISTORY: 72 years old Female. ICD-10 CODE: Z78.0 POST MENOPAUSAL Height: 62in Weight: 202lb FRAX RISK QUESTIONS: Secondary Osteoporosis: RISK FACTORS HISTORY OF: MEDICATIONS: Thyroid Medications: Which medication: Synthroid How Lon+ years EXAM MEASUREMENTS: Bone mineral densitometry was performed using the [employer] System. Bone mineral density as measured about the Lumbar spine is: ----- L1-L4(G/cm2): 1.262 T Score Values are as follows: ----- L1: -0.9 ----- L2: 0.9 ----- L3: 1.2 ----- L4: 1.1 ----- L1-L4: 0.7 Z Score Values are as follows: ----- L1: -0.1 ----- L2: 1.7 ----- L3: 2.0 ----- L4: 2.0 ----- L1-L4: 1.5 Bone mineral density has: Decreased -2.7% since study of: 04-29-21 Bone mineral density about the R hip (g/cm2): 1.017 Bone mineral density about the L hip (g/cm2): 0.931 T Score values are as follows: -----R Neck: -1.0 -----L Neck: -1.3 -----R Total: 0.1 -----L Total: -0.6 Z Score values are as follows: -----R Neck: 0.3 -----L Neck: 0.0 -----R Total: 1.0 -----L Total: 0.4 Bone mineral density has: Increased 2.6% since study of: 04-29-21 FRAX%s: The graph provided illustrates a 9.1% chance for a major osteoporotic fx and a 1.3% chance fo r the hips probability for fx in 10 years time. IMPRESSION: Normal (Values between +1 and -1 indicate normal bone mass). Consider repeating this study in 5 year s or sooner if there is some new clinical indication. NOTE: T-SCORE=SD OF THE YOUNG ADULT MEAN.
== END | disposition home or self-care (01) ==
LOC: RADBDWWP 10:51
PROVIDERS: ATTEND Internal Medicine Hematology & Oncology
DX: Z78.0 Asymptomatic menopausal state (principal); D05.11 Intraductal carcinoma in situ of right breast; Z71.3 Dietary counseling and surveillance; R92.322 Mammographic fibroglandular density, left breast; M85.852 Other specified disorders of bone density and structure, left thigh; M19.90 Unspecified osteoarthritis, unspecified site
CPT/HCPCS: 77080; 77065; G0279; 77061

== ENCOUNTER → 2023-05-31 | Outpatient (CLI) | payer MEDICARE | END | disposition home or self-care (01) | LOC: RADMAMWWP 10:48 | PROVIDERS: ATTEND Surgery | DX: Z53.9 Procedure and treatment not carried out, unspecified reason (principal) ==

== ENCOUNTER → 2024-05-29 | Outpatient (CLI) | payer MEDICARE ==
--- NOTE | 2024-05-29 11:15 | XR ---
EXAMINATION TYPE: XR lumbar spine 2 or 3V DATE OF EXAM: 05/29/2024 10:47 AM COMPARISON: None. CLINICAL INDICATION: Female, 73 years old with history of M54.50 Chronic low back pain, pain TECHNIQUE: 3 view(s) obtained. FINDINGS: There is attempted sacralization of L5. Pedicles appear intact. Disc space narrowing is present poste rior L3-4 through the L2-3 regions. Alignment is preserved IMPRESSION: 1. Degenerative disc change L2-3 L3-4. [facility], , 05/29/2024 11:13 AM
== END | disposition home or self-care (01) ==
LOC: RADXRMAIN 10:29
PROVIDERS: ATTEND Family Medicine
DX: M51.360 Other intervertebral disc degeneration, lumbar region with discogenic back pain only (principal)
CPT/HCPCS: 72100

== ENCOUNTER → 2024-05-31 | Outpatient (CLI) | payer MEDICARE ==
--- NOTE | 2024-05-31 13:50 | MM ---
Reason for Exam: Hx of breast cancer, mastectomy. Last screening mammogram was performed 12 month(s) ago. Patient History: Menarche at age 12. First Full-Term at age 19. Postmenopausal. Patient has history of breast feeding. Breast cancer, right, age 70. 2021, Mastectomy on the Right side. Benign Excisional Biopsy on the right side. Benign Excisional Biopsy on the right side. Excisional Biopsy on the Left side. 05/26/2021, MG discontinued stereo core RT on the right side. Prior Study Comparison: 05/01/2021 Right Diagnostic Mammogram, [facility]. 05/27/2022 Left MG 3D diag mammo w/cad LT, [facility]. 05/31/2023 Left MG 3D diag mammo wo cad LT, [facility]. Tissue Density: Left: There are scattered areas of fibroglandular density. Findings: Analyzed By CAD. There is an enlarging cutaneous nodular plaque along the lateral periareolar region best seen on the CC nipple profile view. Recommend further dermatology evaluation and short interval follow-up. The grouped coarse calcifications medially at a middle depth are unchanged. No significant change otherwise seen. Overall Assessment: Probably benign, BI-RAD 3 Management: Diagnostic Mammogram of the left breast in 6 months. Additional dermatology referral to assess an enlarging cutaneous lesion lateral periareolar region. Patient should continue monthly self-breast exams. A clinical breast exam by your physician is recommended on an annual basis. This exam should not preclude additional follow-up of suspicious palpable abnormalities. [facility], , 05/31/2024 1:47 PM. Electronically signed and approved by: Cecilia Ambrose M.D. Radiologist
== END | disposition home or self-care (01) ==
LOC: RADMAMWWP 10:59
PROVIDERS: ATTEND Surgery
DX: Z12.31 Encounter for screening mammogram for malignant neoplasm of breast (principal); R92.323 Mammographic fibroglandular density, bilateral breasts; Z78.0 Asymptomatic menopausal state; Z85.3 Personal history of malignant neoplasm of breast
CPT/HCPCS: 77067